=== PATIENT | male | born 1985 | race Caucasian/White ===

== ENCOUNTER 2020-07-05 06:28 | Emergency (ER) | payer OTHER ==
[~2020-07-05] VITALS: Ht 177.8 cm; Wt 120.2 kg
[2020-07-05] MEDS ORDERED: ACET-683 PO (06:33)
[2020-07-05 07:27] LABS: BASO % 0.5 % (0.0-1.0); EOS # 0.1 10^3/uL (0.0-0.5); EOS % 1.1 % (0.0-3.0); HEMATOCRIT 50.9 % (42.0-52.0); HEMOGLOBIN 16.9 g/dl (13.5-17.5); LYMPH # 1.3 10^3/uL (1.5-5.0); LYMPH % 15.2 % (24.0-44.0); MEAN CORPUSCULAR HEMOGLOBIN 29.2 pg (27.0-33.0); MEAN CORPUSCULAR HGB CONC 33.2 g/dl (32.0-36.5); MEAN CORPUSCULAR VOLUME 87.9 fl (80.0-96.0); MONO # 0.5 10^3/uL (0.0-0.8); MONO % 6.4 % (0.0-5.0); NEUTROPHILS # 6.5 10^3/uL (1.5-8.5); NEUTROPHILS % 76.6 % (36.0-66.0); PLATELET COUNT, AUTOMATED 182 10^3/uL (150-450); RED BLOOD COUNT 5.79 10^6/uL (4.30-6.10); WHITE BLOOD COUNT 8.5 10^3/uL (4.0-10.0)
[2020-07-05] MEDS ORDERED: KETOROLAC 30 MG/ML 1ML VIAL IV ONE (07:30)
[2020-07-05] MEDS ORDERED: ISOVUE-370 76% 100ML VIAL As Ordered ONE (07:40)
--- NOTE | 2020-07-05 08:28 | REPVR ---
PROCEDURE INFORMATION: Exam: CT Neck With Contrast Exam date and time: 07/05/2020 7:47 AM Age: 34 years old Clinical indication: Mass, lump, or swelling in neck; Additional info: L jaw/neck swelling, R/O abscess TECHNIQUE: Imaging protocol: Computed tomography images of the neck with intravenous contrast. Radiation optimization: All CT scans at this facility use at least one of these dose optimization techniques: automated exposure control; mA and/or kV adjustment per patient size (includes targeted exams where dose is matched to clinical indication); or iterative reconstruction. Contrast material: ISOVUE 370; Contrast volume: 75 ml; Contrast route: INTRAVENOUS (IV); COMPARISON: No relevant prior studies available. FINDINGS: Paranasal sinuses: There is mild ethmoid, maxillary and sphenoid sinus mucosal thickening. Nasopharynx: Unremarkable. Oropharynx: Unremarkable. No significant tonsillar enlargement. Hypopharynx: Unremarkable. Larynx: Unremarkable. Normal epiglottis. Retropharyngeal space: Unremarkable. Submandibular/Parotid glands: The left submandibular gland is enlarged and hyperemic with overlying soft tissue induration. Appearance is worrisome for sialoadenitis. Thyroid: Normal. No enlarged or calcified nodules. Lymph nodes: There is bulky upper cervical lymphadenopathy asymmetric to the left. Dominant left submandibular lymph node measures up to 2.4 cm in maximum diameter. These are presumably reactive in nature. Trachea: Visualized trachea is unremarkable. Lungs: Unremarkable as visualized. Bones/joints: Unremarkable. No acute fracture. Soft tissues: There is left submandibular soft tissue induration IMPRESSION: Findings compatible with left submandibular sialoadenitis with reactive lymphadenopathy. Clinical follow-up to confirm resolution is recommended. Electronically signed by: Dannielle Conrad On 07/05/2020 08:27:51 AM
[2020-07-05] MEDS ORDERED: AUGM875T28 PO (08:37)
[2020-07-05 08:57] VITALS: BP 157/91
--- NOTE | 2020-07-05 14:41 | ED PDOC ---
Post-Departure Follow-Up ct neck faxed to [facility] for fu Jaida Marques MD Jul 05, 2020 14:41
== END 2020-07-05 08:59 | disposition home or self-care (01) ==
LOC: M ED 06:28
DX: R68.84 Jaw pain (principal); H92.02 Otalgia, left ear; K11.21 Acute sialoadenitis; F17.200 Nicotine dependence, unspecified, uncomplicated
CPT/HCPCS: 36415; 70491; 80047; 85025; 96374; 99284; J1885; Q9967